=== PATIENT | male | born 1940 | race Caucasian/White ===

== ENCOUNTER 2018-11-22 11:28 | Day surgery (SDC) | payer MEDICARE ==
[~2018-11-22] VITALS: Ht 182.9 cm; Wt 69.0 kg
[2018-11-22] MEDS ORDERED: APIX5TAB PO (12:31)
[2018-11-22] MEDS ORDERED: PANT20TA3 PO (12:31)
[2018-11-22] MEDS ORDERED: CHOL2000 PO (12:31)
[2018-11-22] MEDS ORDERED: FLEC50TA25 PO (12:31)
[2018-11-22] MEDS ORDERED: TERA5CAP3 PO (12:31)
[2018-11-22] MEDS ORDERED: MAGN300C PO (12:31)
[2018-11-22] MEDS ORDERED: OMEG1CAP23 PO (12:31)
[2018-11-22] MEDS ORDERED: PROPOFOL 10 MG/ML, 20ML ONE (13:10)
[2018-11-22 13:11] LABS: ANION GAP 9 mmol/L (5-15); CALCIUM 9.2 mg/dL (8.5-10.1); CHLORIDE 109 mmol/L (98-107); CREATININE 1.16 mg/dL (0.7-1.3)
== END 2018-11-22 14:40 | disposition home or self-care (01) ==
LOC: CACL 11:28
PROVIDERS: ATTEND Internal Medicine Cardiovascular Disease
DX: I48.92 Unspecified atrial flutter (principal); I48.0 Paroxysmal atrial fibrillation; I10 Essential (primary) hypertension; Z88.8 Allergy status to other drugs, medicaments and biological substances
CPT/HCPCS: 36415; 80048; 92960; 93005; J2704

== ENCOUNTER 2018-12-05 15:25 | Outpatient (CLI) | payer MEDICARE | END 2018-12-05 23:59 | disposition home or self-care (01) | LOC: CFH 15:25 | PROVIDERS: ATTEND Internal Medicine Cardiovascular Disease | DX: I08.3 Combined rheumatic disorders of mitral, aortic and tricuspid valves (principal); I10 Essential (primary) hypertension; I48.0 Paroxysmal atrial fibrillation; G45.9 Transient cerebral ischemic attack, unspecified | CPT/HCPCS: 93306 ==

== ENCOUNTER 2021-01-10 10:38 | Outpatient (CLI) | payer MEDICARE ==
[~2021-01-10 10:38] MED LIST: APIX5TAB PO; CHOL2000 PO; FLEC50TA25 PO; MAGN300C PO; OMEG1CAP23 PO; PANT20TA4 PO; TERA5CAP3 PO
[2021-01-10] MEDS ORDERED: FINA5TAB4 PO (11:08)
[2021-01-10] MEDS ORDERED: APIX2.5T PO (11:08)
[2021-01-10] MEDS ORDERED: TAMS-11 PO (11:08)
[2021-01-10] MEDS ORDERED: LEVO500C3 PO (11:34)
[2021-01-10] MEDS ORDERED: BETA GLUCAN PO (11:34)
[2021-01-10] MEDS ORDERED: melatonin PO (11:34)
[2021-01-10] MEDS ORDERED: [UNRECOGNIZED DRUG - CODE] PO (11:34)
[2021-01-10] MEDS ORDERED: CINN500C2 PO (11:34)
[2021-01-10] MEDS ORDERED: MAGN400T9 PO (11:34)
[2021-01-10] MEDS ORDERED: VIT1CAPS42 PO (11:34)
[2021-01-10] MEDS ORDERED: [UNRECOGNIZED DRUG - OTHER] PO (11:34)
[2021-01-10] MEDS ORDERED: [UNRECOGNIZED DRUG - CODE] PO (11:34)
[2021-01-10] MEDS ORDERED: UBID100C41 PO (11:34)
[2021-01-10] MEDS ORDERED: TURM500C4 PO (11:34)
[2021-01-10] MEDS ORDERED: L.AC1CAP6 PO (11:34)
[2021-01-10] MEDS ORDERED: METH500T5 PO (11:34)
[2021-01-10] MEDS ORDERED: SUPPLEMENT PO (11:34)
[2021-01-10] MEDS ORDERED: GLUC1CAP40 PO (11:34)
== END 2021-01-10 23:59 | disposition home or self-care (01) ==
LOC: STAR 10:38
PROVIDERS: ATTEND Student in an Organized Health Care Education/Training Program
DX: Z01.818 Encounter for other preprocedural examination (principal); N40.1 Benign prostatic hyperplasia with lower urinary tract symptoms
CPT/HCPCS: 93005

== ENCOUNTER 2021-01-14 14:01 | Observation (INO) | payer MEDICARE ==
[~2021-01-14] VITALS: Ht 182.9 cm; Wt 78.5 kg
[~2021-01-14 14:01] MED LIST changes: +APIX2.5T PO; +BETA GLUCAN PO; +CINN500C2 PO; +FINA5TAB4 PO; +GLUC1CAP40 PO; +L.AC1CAP6 PO; +LEVO500C3 PO; +MAGN400T9 PO; +METH500T5 PO; +SUPPLEMENT PO; +TAMS-11 PO; +TURM500C4 PO; +UBID100C41 PO; +VIT1CAPS42 PO; +[UNRECOGNIZED DRUG - CODE] PO; +[UNRECOGNIZED DRUG - CODE] PO; +[UNRECOGNIZED DRUG - OTHER] PO; +melatonin PO
[2021-01-14] MEDS ORDERED: CHLORHEXIDINE 15 ML UDC PO ONE (15:00)
[2021-01-14] MEDS ORDERED: LACTATED RINGERS 1,000 ML IV SCH (15:00)
[2021-01-14] MEDS ORDERED: FENTANYL PF 100 MCG/2ML ONE ×2 (15:57→18:19)
[2021-01-14] MEDS ORDERED: HYDROmorphone 1 MG/ML, 1ML INJ IVPush PRN (17:00)
[2021-01-14] MEDS ORDERED: METOPROLOL 1 MG/ML, 5ML IV PRN (17:00)
[2021-01-14] MEDS ORDERED: hydrALAzine 20 MG/ML, 1ML IV PRN (17:00)
[2021-01-14] MEDS ORDERED: ONDANSETRON 2MG/ML, 2ML IVPush PRN (17:00)
[2021-01-14] MEDS ORDERED: LABETALOL 5MG/ML, 20ML IV PRN (17:00)
[2021-01-14] MEDS ORDERED: PROMETHAZINE 25 MG SUPP PR PRN (17:00)
[2021-01-14] MEDS ORDERED: LORazepam 2 MG/ML, 1ML IVPush PRN (17:00)
[2021-01-14] MEDS ORDERED: OXYcodone 5 MG/5 ML ORAL.SOL UDC PO PRN (17:00)
[2021-01-14] MEDS ORDERED: PROMETHAZINE 25 MG/ML, 1ML IVPush PRN (17:00)
[2021-01-14] MEDS ORDERED: ACETAMINOPHEN 325 MG TABLET PO PRN (17:00)
[2021-01-14] MEDS ORDERED: FENTANYL PF 100 MCG/2ML IV PRN (17:00)
[2021-01-14] MEDS ORDERED: PROPOFOL 10 MG/ML, 20ML ONE (17:26)
[2021-01-14] MEDS ORDERED: DEXAMETHASONE 4 MG/ML, 1ML ONE (17:26)
[2021-01-14] MEDS ORDERED: CEFAZOLIN 1,000 MG ONE (17:26)
[2021-01-14] MEDS ORDERED: ONDANSETRON 2MG/ML, 2ML ONE (17:26)
[2021-01-14] MEDS ORDERED: OPIUM/BELLADONNA SUPP.RECT 16.2-30 MG PR PRN (18:00)
[2021-01-14] MEDS ORDERED: HYDROmorphone 1 MG/ML, 1ML INJ IV PRN (18:00)
[2021-01-14] MEDS ORDERED: MEPERIDINE/PF 25MG/ML,1ML ONE (19:16)
[2021-01-14] MEDS ORDERED: MEPERIDINE/PF 25MG/0.5ML IVPush PRN (19:30)
[2021-01-14 20:31] VITALS: BP 153/84
[2021-01-14] MEDS: OXYcodone 5 MG/5 ML ORAL.SOL UDC PO PRN (21:25)
[2021-01-14] MEDS: ACETAMINOPHEN 325 MG TABLET PO SCH (21:25)
[2021-01-14] MEDS: DOCUSATE 100 MG CAPSULE PO SCH (21:26)
[2021-01-14] MEDS ORDERED: SODIUM CHLORIDE 0.9% 1,000 ML IV SCH (22:00)
[2021-01-15 00:12] VITALS: BP 145/78
[2021-01-15] MEDS: OXYcodone 5 MG/5 ML ORAL.SOL UDC PO PRN (03:59)
[2021-01-15] MEDS: ACETAMINOPHEN 325 MG TABLET PO SCH ×2 (04:00→10:30)
[2021-01-15 04:13] VITALS: BP 157/80
[2021-01-15] MEDS ORDERED: PANTOPRAZOLE 20MG TABLET PO SCH (06:00)
[2021-01-15 06:36] VITALS: BP 147/79
[2021-01-15] MEDS: DOCUSATE 100 MG CAPSULE PO SCH (08:55)
[2021-01-15] MEDS ORDERED: POLYETHYLENE GLYCOL 17 GM PACKET PO SCH (09:00)
== END 2021-01-15 10:35 | disposition home or self-care (01) ==
LOC: OR 14:01 → 4NE 16:00 → OR 20:39
PROVIDERS: ADMIT Student in an Organized Health Care Education/Training Program; ATTEND Student in an Organized Health Care Education/Training Program
DX: N40.1 Benign prostatic hyperplasia with lower urinary tract symptoms (principal); R39.14 Feeling of incomplete bladder emptying; R97.20 Elevated prostate specific antigen [PSA]; N32.89 Other specified disorders of bladder; I48.91 Unspecified atrial fibrillation; Z79.01 Long term (current) use of anticoagulants; Z79.899 Other long term (current) drug therapy; Z86.73 Personal history of transient ischemic attack (TIA), and cerebral infarction without residual deficits; Z87.442 Personal history of urinary calculi
CPT/HCPCS: 52601; 88305; 96360; 96361; G0378; J0690; J1100; J2175; J2405; J2704; J3010; J7030; J7120